=== PATIENT | male | born 1960 | race Caucasian/White ===

== ENCOUNTER → 2016-06-26 | Outpatient (CLI) | payer OTHER | LOC: BMCIMAGING 13:52 | PROVIDERS: ATTEND Nurse Practitioner Adult Health | DX: R05 Cough (principal) ==

== ENCOUNTER → 2016-08-30 | Outpatient (CLI) | payer OTHER | LOC: FIMAGING 15:44 | PROVIDERS: ATTEND Orthopaedic Surgery | DX: Z01.818 Encounter for other preprocedural examination (principal); M17.11 Unilateral primary osteoarthritis, right knee ==

== ENCOUNTER 2016-09-10 08:07 | Inpatient (IN) | payer OTHER ==
[2016-08-30 16:25] LABS: % IMMATURE GRANULYOCYTES 0.3 % (0.0-1.1); ABSOLUTE IMMATURE GRANULOCYTES 0.02 10^3/uL (0.00-0.10); ADD DIFF? NO; ADD MORPH? NO; ADD SCAN? NO; ATYPICAL LYMPHOCYTE FLAG 0 (0-99); FRAGMENT RBC FLAG 0 (0-99); HEMATOCRIT 40.5 % (40.0-51.0); HEMOGLOBIN 13.7 g/dL (13.7-17.5); LEFT SHIFT FLG 0 (0-99); LIPEMIA HEMOLYSIS FLAG 90 (0-99); MEAN CELL HEMOGLOBIN 32.4 pg (27.9-34.1); MEAN CELL HEMOGLOBIN CONCENTR. 33.8 g/dL (32.4-36.7); MEAN CELL VOLUME 95.7 fL (81.5-99.8); MEAN PLATELET VOLUME 10.6 fL (8.7-11.7); PLATELET CLUMPS FLAG 10 (0-99); PLATELET COUNT 201 10^3/uL (150-400); RED BLOOD CELL COUNT 4.23 10^6/uL (4.40-6.38); RED CELL DISTRIBUTION WIDTH 13.8 % (11.5-15.2)
[~2016-09-10 08:07] MED LIST: ACETAMINOPHEN 325 MG TAB PO ONE; CEFAZOLIN 2 GM/DEXTR 100 ML IV ONE; CHLORHEXIDINE GLUC HIBICLENS 118 ML BTL TP ONE; FAMOTIDINE 20 MG TAB PO ONE; ROPI/epiNEPH/KETOROLAC/morphINE JOINT COCKTAIL IU ONE; TRANEXAMIC ACID 900 MG in NS 100 ML IV ONE
[2016-09-10] MEDS ORDERED: CEFAZOLIN 2 GM/DEXTROSE/100 ML BAG IV ONE (09:51)
[2016-09-10] MEDS ORDERED: FAMOTIDINE 20 MG TAB ONE (09:51)
[2016-09-10] MEDS ORDERED: ACETAMINOPHEN 325 MG TAB ONE (09:51)
[2016-09-10] MEDS ORDERED: PROPOFOL/EMULSION 500 MG/50 ML BOTTLE IV ONE ×2 (10:14→13:02)
[2016-09-10] MEDS ORDERED: fentaNYL 100 MCG/2 ML INJ ONE ×2 (10:14→14:39)
[2016-09-10] MEDS ORDERED: LIDOCAINE 2% 5 ML SDV ONE ×3 (10:20→14:30)
[2016-09-10] MEDS ORDERED: MIDAZOLAM 2 MG/2 ML VIAL ONE (10:21)
[2016-09-10] MEDS ORDERED: CALCIUM CHLORIDE 1 GM/10 ML INJ ONE (10:23)
[2016-09-10] MEDS ORDERED: THROMBIN (BOVINE) 5,000 UNIT VIAL TP ONE (10:23)
[2016-09-10] MEDS ORDERED: ceFAZolin 1 GM/5 ML SYR ONE (10:25)
[2016-09-10] MEDS ORDERED: LR 1,000 ML IV ONE (11:08)
[2016-09-10] MEDS ORDERED: LIDOCAINE 1% 5 ML SDV ID PRN (11:08)
[2016-09-10] MEDS ORDERED: epHEDrine SULFATE 10 MG/ML SYR ONE (11:30)
[2016-09-10] MEDS ORDERED: ROCURONIUM 50 MG/5 ML VIAL ONE (11:50)
[2016-09-10] MEDS ORDERED: DEXAMETHASONE 4 MG/ML VIAL ONE (11:50)
[2016-09-10] MEDS ORDERED: ceFAZolin 1 GM VIAL ONE ×2 (12:27)
[2016-09-10] MEDS ORDERED: DIAZEPAM 5 MG TAB PO PRN (16:14)
[2016-09-10] MEDS ORDERED: ceFAZolin 2 GM/DEXTROSE 100 ML IV SCH (16:30)
[2016-09-10] MEDS ORDERED: D5W 1/2 NS W/ 20 KCl/L 1,000 ML IV SCH (16:30)
[2016-09-10 17:58] VITALS: RESP 16
[2016-09-10] MEDS: oxyCODONE IR 5 MG TAB PO PRN ×2 (18:26→22:20)
[2016-09-10] MEDS: ASPIRIN 325 MG TAB PO SCH (19:48)
[2016-09-10] MEDS: ceFAZolin 2 GM/DEXTROSE 100 ML IV SCH (19:48)
[2016-09-11] MEDS: ceFAZolin 2 GM/DEXTROSE 100 ML IV SCH (04:02)
[2016-09-11] MEDS: oxyCODONE IR 5 MG TAB PO PRN ×2 (04:02→08:51)
[2016-09-11 08:02] VITALS: BP 116/70; PULSE 70; TEMP 98; O2SAT 96
[2016-09-11] MEDS: ASPIRIN 325 MG TAB PO SCH (08:50)
[2016-09-11] MEDS ORDERED: MULTIVITAMINS 1 EACH TAB PO SCH (09:00)
[2016-09-11] MEDS ORDERED: GLUCOSAMINE SULF 500 MG CAP PO SCH (09:00)
--- NOTE | 2016-09-11 11:07 | GDS ---
[f rep st] DISCHARGE SUMMARY ADMISSION DIAGNOSIS: Right knee degenerative joint disease. DISCHARGE DIAGNOSIS: Right knee degenerative joint disease. PROCEDURE: Right total knee arthroplasty. HISTORY OF PRESENT ILLNESS: The patient is a 56-year-old gentleman with end-stage arthritis to his right knee. Clinical and radiographic features are consistent with this. He has failed all attempt s at conservative management, therefore, recommended total knee replacement. He understood the risk s, benefits, alternatives, and wished to proceed. Written consent was signed and placed in the twan ent's chart. HOSPITAL COURSE: The patient was admitted to the hospital floor after uncomplicated total knee arth roplasty, MAKOplasty. He tolerated the procedure well. Postoperative course was uneventful. At th e time of discharge, he is tolerating an oral diet. His pain is well controlled on oral medicines. He is voiding without difficulty. His incision is clean, dry, and intact. He has no calf swelling or tenderness. Intact ankle plantar flexion, dorsiflexion, EHL function with 5/5 strength. X-rays are stable with no fracture or lucency. DISCHARGE ACTIVITIES: Weightbearing as tolerated, range of motion as tolerated. DISCHARGE INSTRUCTIONS: Daily dressing changes. DEBRA ronquillo x2 weeks. DISCHARGE MEDICATIONS: Aspirin 325 mg p.o. daily, oxycodone 5 mg 1-2 every 4 hours p.r.n. pain. FOLLOWUP: 2 weeks. /[id number]/MODL
== END 2016-09-11 11:44 | disposition home or self-care (01) | DRG 470 ==
LOC: F3E 08:07 → F3N 16:04
PROVIDERS: ADMIT Orthopaedic Surgery; ATTEND Orthopaedic Surgery
PROC: 0SRC0JZ Replacement of Right Knee Joint with Synthetic Substitute, Open Approach (ICD-10-PCS; principal; 2016-09-10 10:00)
DX: M17.11 Unilateral primary osteoarthritis, right knee (principal); K21.9 Gastro-esophageal reflux disease without esophagitis
CPT/HCPCS: 97116-GP; 97161-GP; 97165-GO; C1713; J0171; J0690; J1100; J1885; J2250; J2704; J2795; J3010

== ENCOUNTER → 2016-10-22 | Outpatient (CLI) | payer OTHER | LOC: BMCIMAGING 10:48 | PROVIDERS: ATTEND Physician Assistant | DX: Z96.651 Presence of right artificial knee joint (principal); M25.461 Effusion, right knee ==

== ENCOUNTER → 2016-11-13 | Outpatient (CLI) | payer OTHER | LOC: FIMAGING 10:13 | PROVIDERS: ATTEND Orthopaedic Surgery | DX: Z01.818 Encounter for other preprocedural examination (principal); M17.12 Unilateral primary osteoarthritis, left knee; M25.462 Effusion, left knee ==

== ENCOUNTER 2016-12-03 10:38 | Inpatient (IN) | payer OTHER ==
--- NOTE | 2016-12-03 07:02 | PDHPUP ---
History & Physical Update H&P update statement: This history and physical update is based on an assessment of the patient which was completed after admission or registration (within 24 hours), but prior to the surgery/procedure.
--- NOTE | 2016-12-03 07:03 | PDIAF ---
- Diagnosis Diagnosis: left knee djd Code Status: Full Code - Medication Management Discharge Medications: Medications to Continue on Transfer Glucosamine Sulfate [Glucosamine Sulfate 500 MG (*)] 500 mg PO DAILY 08/20/16 [ Last Taken 09/05/16] Multivitamins [Multivitamin (*)] 1 each PO DAILY 08/20/16 [Last Taken 09/05/16] Naproxen Sodium [Aleve 220 MG (*)] 440 mg PO BID 11/01/16 [Last Taken Unknown] Discharge Medications: Refer to the Discharge Home Medication list for PRN reason. - Orders Services needed: Physical Therapy Activity/Weight Bearing Restrictions: wbat. rom as andria. daily dressing changes. may shower without bandage. no soaking or immersion. nabeel hose x 2 weeks. f/u at two weeks. seek attn for increasing redness, drainage or discharge. aspirin 325 mg po daily - Follow Up Care Current Providers and Referrals: Bandar Dickerson MD [Primary Care Provider] -
[~2016-12-03 10:38] MED LIST changes: -ACETAMINOPHEN 325 MG TAB PO ONE; -CEFAZOLIN 2 GM/DEXTR 100 ML IV ONE; -CHLORHEXIDINE GLUC HIBICLENS 118 ML BTL TP ONE; -FAMOTIDINE 20 MG TAB PO ONE; +NS IV ONE; -ROPI/epiNEPH/KETOROLAC/morphINE JOINT COCKTAIL IU ONE; +ROPIVACAINE 0.2% 80 MG, EPINEPHrine 0.2 MG, KETOROLAC TROMETHAMINE 30 MG, morphINE 10 M... IU ONE; -TRANEXAMIC ACID 900 MG in NS 100 ML IV ONE; +TRANEXAMIC ACID IV ONE
[2016-12-03] MEDS ORDERED: traMADol 50 MG TAB PO PRN (11:10)
[2016-12-03] MEDS ORDERED: MAGNESIUM HYDROXIDE 30 ML UDCUP PO PRN (11:10)
[2016-12-03] MEDS ORDERED: METOCLOPRAMIDE 10 MG/2 ML VIAL IVP PRN (11:10)
[2016-12-03] MEDS ORDERED: BISACODYL 10 MG SUPP PR PRN (11:10)
[2016-12-03] MEDS ORDERED: LACTULOSE 20 GM/30 ML UDCUP PO PRN (11:10)
[2016-12-03] MEDS ORDERED: TEMAZEPAM 15 MG CAP PO PRN (11:10)
[2016-12-03] MEDS ORDERED: ceFAZolin 2 GM/DEXTROSE 100 ML IV ONE (11:10)
[2016-12-03] MEDS ORDERED: DIPHENOXYLATE/ATROPINE LOMOTIL 1 TAB PO PRN (11:10)
[2016-12-03] MEDS ORDERED: ACETAMINOPHEN 325 MG TAB PO ONE (11:10)
[2016-12-03] MEDS ORDERED: diphenhydrAMINE 25 MG CAP PO PRN (11:10)
[2016-12-03] MEDS ORDERED: POLYETHYLENE GLYCOL 3350 17 GM PKT PO PRN (11:10)
[2016-12-03] MEDS ORDERED: PROMETHAZINE HCL 25 MG/ML INJ IVP PRN (11:10)
[2016-12-03] MEDS ORDERED: PROMETHAZINE HCL 25 MG SUPPR PR PRN (11:10)
[2016-12-03] MEDS ORDERED: DIAZEPAM 5 MG TAB PO PRN (11:10)
[2016-12-03] MEDS ORDERED: FAMOTIDINE 20 MG TAB PO ONE (11:10)
[2016-12-03] MEDS ORDERED: PHARMACY PAIN CONSULT 1 EA MISC PRN (11:10)
[2016-12-03] MEDS ORDERED: ONDANSETRON 4 MG/2 ML VIAL IVP PRN (11:10)
[2016-12-03] MEDS ORDERED: ONDANSETRON DISINTEGRATING 4 MG TAB PO PRN (11:10)
[2016-12-03] MEDS ORDERED: ceFAZolin 1 GM/5 ML SYR ONE (11:21)
[2016-12-03] MEDS ORDERED: NS IV ONE (11:45)
[2016-12-03] MEDS ORDERED: TRANEXAMIC ACID IV ONE (11:45)
[2016-12-03] MEDS: LR 1,000 ML IV SCH ×2 (11:50→21:06)
--- NOTE | 2016-12-03 12:37 | PDANEPAE ---
ANE History of Present Illness left knee OA for TKA today ANE Past Medical History - Cardiovascular History Hx Hypertension: No Hx Arrhythmias: No Hx Chest Pain: No Hx Coronary Artery / Peripheral Vascular Disease: No Hx CHF / Valvular Disease: No Hx Palpitations: No - Pulmonary History Hx COPD: No Hx Asthma/Reactive Airway Disease: No Hx Recent Upper Respiratory Infection: No Hx Oxygen in Use at Home: No Hx Sleep Apnea: No Sleep Apnea Screening Result - Last Documented: Negative Pulmonary History Comment: PRONE TO SINUS/BRONCHITIS - Neurologic History Hx Cerebrovascular Accident: No Hx Seizures: No Hx Dementia: No - Endocrine History Hx Diabetes: No - Renal History Hx Renal Disorders: No - Liver History Hx Hepatic Disorders: No - Neurological & Psychiatric Hx Hx Neurological and Psychiatric Disorders: No - Cancer History Hx Cancer: No - Congenital Disorder History Hx Congenital Disorders: No - GI History Hx Gastrointestinal Disorders: Yes Gastrointestinal History Comment: REFLUX OCCAS - Other Health History Other Health History: tooth implant upper right canine - Chronic Pain History Chronic Pain: Yes (left knee) - Surgical History Prior Surgeries: bilateral knee scopes, 2x on left, 1x on right. right knee replacement september 2016. right acl 1991. tooth implant. pilonidal cyst ANE Review of Systems - Exercise capacity METS (RN): 4 METS ANE Patient History - Allergies Allergies/Adverse Reactions: No Known Allergies Allergy (Unverified 08/20/16 11:13) - Home Medications Home medications: home medication list seen and reviewed Home Medications: Glucosamine Sulfate [Glucosamine Sulfate 500 MG (*)] 500 mg PO DAILY 08/20/16 [ Last Taken 11/26/16] Multivitamins [Multivitamin (*)] 1 each PO DAILY 08/20/16 [Last Taken 11/26/16] Naproxen Sodium [Aleve 220 MG (*)] 440 mg PO BID 11/01/16 [Last Taken 11/26/16] - NPO status NPO Since - Liquids (Date): 12/02/16 NPO Since - Liquids (Time): 21:00 NPO Since - Solids (Date): 12/01/16 NPO Since - Solids (Time): 18:00 - Anes Hx Anes Hx: no prior problems - Smoking Hx Smoking Status: Never smoked - Family Anes Hx Family Hx Anesthesia Complications: NEG ANE Labs/Vital Signs - Vital Signs Blood Pressure: 116/78 Heart Rate: 78 Respiratory Rate: 16 O2 Sat (%): 94 Height: 182.88 cm Weight: 87.543 kg ANE Physical Exam - Airway Neck exam: FROM Mallampati Score: Class 2 Mouth exam: normal dental/mouth exam - Pulmonary Pulmonary: no respiratory distress - Cardiovascular Cardiovascular: regular rate and rhythym - ASA Status ASA Status: II ANE Anesthesia Plan Anesthesia Plan: spinal Regional Anesthesia: single shot NB, adductor canal FNB
[2016-12-03] MEDS ORDERED: MIDAZOLAM 2 MG/2 ML VIAL IVP ONE (12:39)
[2016-12-03] MEDS ORDERED: PROPOFOL/EMULSION 500 MG/50 ML BOTTLE IV ONE (12:44)
[2016-12-03] MEDS ORDERED: MIDAZOLAM 2 MG/2 ML VIAL ONE (12:53)
[2016-12-03] MEDS ORDERED: THROMBIN (BOVINE) 5,000 UNIT VIAL TP ONE (13:49)
[2016-12-03] MEDS ORDERED: CALCIUM CHLORIDE 1 GM/10 ML INJ ONE (13:49)
[2016-12-03] MEDS ORDERED: PROPOFOL 200 MG/20 ML VIAL ONE ×3 (14:56→15:49)
[2016-12-03] MEDS ORDERED: fentaNYL 100 MCG/2 ML INJ ONE ×2 (15:33→17:22)
[2016-12-03] MEDS: ROPIVACAINE 0.2% 80 MG, EPINEPHrine 0.2 MG, KETOROLAC TROMETHAMINE 30 MG, morphINE 10 M... IU ONE ×2 (15:55→18:03)
[2016-12-03] MEDS: TRANEXAMIC ACID IV ONE ×2 (16:00→18:04)
[2016-12-03] MEDS: NS IV ONE ×2 (16:00→18:04)
[2016-12-03] MEDS ORDERED: NALOXONE HCL 0.4 MG/ML INJ IVP PRN (16:43)
[2016-12-03] MEDS ORDERED: fentaNYL 100 MCG/2 ML INJ IVP PRN (16:43)
[2016-12-03] MEDS ORDERED: HYDROmorphONE/DILAUDID 1 MG/ML SYR IVP PRN (16:43)
[2016-12-03] MEDS ORDERED: OXYCODONE/APAP 5/325 TAB PO PRN (16:43)
--- NOTE | 2016-12-03 16:43 | POSTANESTH ---
Post Anesthetic Evaluation Cardiovascular Status: Normal, Stable Respiratory Status: Normal, Stable Level of Consciousness/Mental Status: Can Participate in Eval Pain Control: Adequate, Prn Tx Ordered Nausea/Vomiting Control: Adequate, Prn Tx Ordered Complications Possibly Related to Anesthesia: None Noted
[2016-12-03] MEDS: ACETAMINOPHEN 325 MG TAB PO SCH ×2 (18:02→18:23)
[2016-12-03] MEDS: MULTIVITAMINS 1 EACH TAB PO SCH (18:03)
[2016-12-03] MEDS: SENNOSIDES/DOCUSATE SODIUM TAB PO SCH ×2 (18:03→21:07)
[2016-12-03] MEDS: GLUCOSAMINE SULF 500 MG CAP PO SCH (18:44)
[2016-12-03] MEDS: oxyCODONE IR 5 MG TAB PO PRN (19:45)
[2016-12-03] MEDS: ASPIRIN 325 MG TAB PO SCH (21:06)
[2016-12-03] MEDS: ceFAZolin 2 GM/DEXTROSE 100 ML IV SCH (21:06)
[2016-12-03] MEDS: FAMOTIDINE 20 MG TAB PO SCH (21:06)
[2016-12-04] MEDS: ACETAMINOPHEN 325 MG TAB PO SCH ×2 (00:02→05:00)
[2016-12-04 05:00] LABS: HEMATOCRIT 36.2 % (40.0-51.0); HEMOGLOBIN 12.1 g/dL (13.7-17.5)
[2016-12-04] MEDS: ceFAZolin 2 GM/DEXTROSE 100 ML IV SCH (05:00)
[2016-12-04] MEDS: ASPIRIN 325 MG TAB PO SCH (08:29)
[2016-12-04] MEDS: GLUCOSAMINE SULF 500 MG CAP PO SCH (08:30)
[2016-12-04] MEDS: MULTIVITAMINS 1 EACH TAB PO SCH (08:30)
[2016-12-04] MEDS: FAMOTIDINE 20 MG TAB PO SCH (08:30)
[2016-12-04] MEDS: SENNOSIDES/DOCUSATE SODIUM TAB PO SCH (08:31)
--- NOTE | 2016-12-04 08:31 | GDS ---
[f rep st] DISCHARGE SUMMARY ADMIT DIAGNOSIS: Left knee degenerative joint disease. DISCHARGE DIAGNOSIS: Left knee degenerative joint disease. PROCEDURE: Left total knee arthroplasty, MAKOplasty. HISTORY OF PRESENT ILLNESS: The patient is a 56-year-old gentleman, well known to me for previous r ight knee replacement. He returns for elective left total knee replacement. He has end-stage arthr itis. He has failed all attempts at conservative management. HOSPITAL COURSE: The patient was admitted to the hospital floor after uncomplicated total knee arth roplasty. He tolerated the procedure well. Postoperatively, he had no complications. At the time of discharge, he is tolerating an oral diet. His pain is well controlled on oral medicines. He is voiding without difficulty. His dressing is clean, dry, and intact. He has no calf swelling or ten derness to bilateral lower extremities. Negative Homans. The bilateral lower extremity x-rays are stable and anatomic. DISCHARGE ACTIVITIES: Weightbearing as tolerated. Range of motion as tolerated. Daily dressing ch anges. No soaking or immersion. May shower without the bandage. Follow up in 2 weeks. Seek atten tion for increasing redness, swelling, drainage, discharge, or other focal complaints. DISCHARGE MEDICATIONS: Oxycodone 5 mg 1-2 every 4 hours p.r.n. pain, aspirin 325 mg p.o. daily and Valium 5 mg, 1 p.o. q.8 hours p.r.n. spasm. FOLLOW UP: He will follow up at 2 weeks. /[id number]/MODL
[2016-12-04] MEDS: oxyCODONE IR 5 MG TAB PO PRN (08:39)
[2016-12-04 09:05] VITALS: BP 116/75; PULSE 81; RESP 16; TEMP 98.4; O2SAT 95
--- NOTE | 2016-12-04 14:23 | ASMTCMCOM ---
CM Note CM Note Notes: Reviewed chart; spoke w/ RAJI Reed. Per notes, pt to discharge home today, independently w/ famil y support and no identified needs. CM avail for any further issues or concerns. Date Signed: 12/04/2016 12:02 PM Electronically Signed By:Michela Marie
--- NOTE | 2016-12-04 14:23 | ASDISCHSUM ---
Discharge Information Plan Status:Home with No Needs Medically Cleared to Leave:12/04/2016 Discharge Date:12/04/2016 11:18 AM CM D/C Disposition:Home, Routine, Self-Care ADT D/C Disposition:Home, Routine, Self-Care Projected Discharge Date:12/04/2016 11:18 AM Transportation at D/C:Family Discharge Delay Reason: Follow-Up Date:12/18/2016 Discharge Slot: Final Diagnosis:Left knee degenerative joint disease Placement Information Patient Contact Information Contact Name:GRACIE Relationship: Address:[address] City:[place] Alternate Phone: State/Zip Code:[place] [address] Email: Financial Information Financial Class:HMO and PPO Plans Primary Plan Desc:[facility] Primary Plan Number:[id number] Secondary Plan Desc: Secondary Plan Number: Assessment Information [facility] Initial CM Assessment Living Arrangements What is your living Answers: With Spouse arrangement? Who do you live with? Type Of Residence What kind of residence do Answers: House you live in? Stairs in Home Answers: Yes Environment Case Management Evaluation Functional: Able to Answers: Yes return Home with Prior Level of Function/Care Discharge Plan Comments Coordination Status Comments Notes: Per notes, pt to discharge independently w/ family support and no identified needs. Date Signed: 12/04/2016 12:00 PM Electronically Signed By:Michela Marie [facility] CM Progress Note CM Note CM Note Notes: Reviewed chart; spoke w/ RAJI Reed. Per notes, pt to discharge home today, independently w/ family support and no identified needs. CM avail for any further issues or concerns. Date Signed: 12/04/2016 12:02 PM Electronically Signed By:Michela Marie Intervention Information
--- NOTE | 2016-12-04 14:23 | ASMTCASEMG ---
Living Arrangements What is your living arrangement? Who do you live Answers: With Spouse with? Type Of Residence What kind of residence do you live in? Answers: House Stairs in Home Environment Answers: Yes Case Management Evaluation Functional: Able to return Home with Prior Level Answers: Yes of Function/Care Discharge Plan Comments Coordination Status Comments Notes: Per notes, pt to discharge independently w/ family support and no identified needs. Date Signed: 12/04/2016 12:00 PM Electronically Signed By:Michela Marie
--- NOTE | 2016-12-07 07:53 | GOP ---
[f rep st] OPERATIVE REPORT DATE OF OPERATION: 12/03/2016 SURGEON: Anson Carney MD DRUG PURCHASER: Chago Montano, ANTISQUEAK APPLIER, ATTORNEY RECRUITER, surgical manager, who was medical necessity for the entiret y of the case. PREOPERATIVE DIAGNOSIS: Left knee degenerative joint disease. POSTOPERATIVE DIAGNOSIS: Left knee degenerative joint disease. PROCEDURE PERFORMED: Left total knee arthroplasty, MAKOplasty. FINDINGS: SPECIMENS: To Pathology, the bony cuts. ESTIMATED BLOOD LOSS: 200 cc. INDICATIONS: The patient is a 56-year-old gentleman who has end-stage arthritis to his left knee. Clinical and radiographic features are consistent with this. He has failed all attempts at conserva tive management. I have, therefore, recommended operative intervention of outlined surgical procedu re, risks, benefits, and alternatives. He wished to proceed. Written consent was signed and placed in patient's chart. DESCRIPTION OF PROCEDURE: The patient was identified in the preanesthesia area. The left knee mani rly demarcated the operative site with indelible marker. He was given 2 g of Ancef intravenously en route to the operative suite. In the OR, general endotracheal anesthesia was administered. Attent ion was turned to the left lower extremity, which was sterilely prepped and draped in the usual [facility] ion. A tourniquet was applied on the upper thigh. Appropriate time-out procedure was carried out. The limb was exsanguinated with Esmarch bandage and tourniquet inflated to 275 mmHg. A standard an terior midline incision was made. Thick subcutaneous flaps were elevated, followed by medial parapa tellar arthrotomy. There was gross bony changes consistent with tricompartmental arthritis. Decisi on was made to proceed with total knee replacement. A separate percutaneous incision was made in th e mid thigh and mid cardenas for the MAKOplasty reference arrays, both of these were fixed over pins in standard fashion. A femoral check point and tibial checkpoints were placed. Bony data was then ent ered into the computer in standard fashion. The MAKOplasty robot was brought in. Soft tissue retra ctors were placed. The patella was cut in a freehand cutting technique and drill holes were made fo r the size 38 mm asymmetric patella. Using the MAKOplasty robot, the bony cuts were initially made for a size 6 femoral and tibial components. After trial sizing, additional cuts were made for size 5 femoral and 5 tibial components. The femur was then finished with a trochlear cut. Trial reducti on revealed anatomic positioning and alignment of the femur. The tibia baseplate was then affixed, the correct orientation was secured and the central punch placed. Trial reduction over a 9 and then 11 mm polyethylene spacer revealed full extension, flexion to 130 degrees without instability throu ghout the flexion-extension arc. The varus and valgus stability were balanced through the flexion-e xtension arc. The patella trial component was placed. The knee was taken through flexion, extensio n and the patella tracked centrally. All trial components were withdrawn. All bony surfaces were t horoughly cleansed and dried. In sequential fashion, the tibial, femoral and patellar components we re then cemented over a 9 mm polyethylene spacer. All marginal cement had been withdrawn. The tiss ue was then injected with a joint cocktail of ropivacaine, morphine, Toradol, and epinephrine. Ulti mately, an 11 mm final polyethylene spacer was then placed and secured. This was confirmed to be fu lly seated. The wound was copiously irrigated with pulsatile lavage solution. The medial parapatel lar arthrotomy closed using #1 Ethibond, subcutaneous tissue closed using 2-0 Monocryl and the skin stapled. The pin sites in the mid femur, and mid cardenas were likewise closed with 2-[address] apled. Sterile dressing was applied. The patient was awakened, extubated, taken to recovery room i n good and stable condition. TOTAL TOURNIQUET TIME: Was 90 minutes. COMPLICATIONS: None. IMPLANTS: The Hawkins Triathlon PS femoral component size 5, Triathlon X3 asymmetric patella, a 38 and 11 mm thickness, the X3 tibial bearing insert size 5, 11 mm thickness, and a tibial baseplate si ze 5. DISPOSITION: To recovery room and then the floor. He is weightbearing range of motion as tolerated . He will follow standard total knee recovery. /[id number]/MODL
== END 2016-12-04 11:18 | disposition home or self-care (01) | DRG 470 ==
LOC: F3E 10:38 → F3N 18:17
PROVIDERS: ADMIT Orthopaedic Surgery; ATTEND Orthopaedic Surgery
PROC: 0SRD0J9 Replacement of Left Knee Joint with Synthetic Substitute, Cemented, Open Approach (ICD-10-PCS; principal; 2016-12-03 12:30)
CPT/HCPCS: 97161-GP; 97165-GO; C1713; J0171; J0690; J1885; J2250; J2405; J2704; J2795; J3010

== ENCOUNTER → 2017-01-21 | Outpatient (CLI) | payer OTHER | LOC: BMCIMAGING 08:04 | PROVIDERS: ATTEND Orthopaedic Surgery | DX: Z47.1 Aftercare following joint replacement surgery (principal); Z96.651 Presence of right artificial knee joint; Z96.652 Presence of left artificial knee joint; M25.461 Effusion, right knee; M25.462 Effusion, left knee ==

== ENCOUNTER → 2017-04-24 | Outpatient (CLI) | payer OTHER | LOC: BMCIMAGING 08:28 | PROVIDERS: ATTEND Orthopaedic Surgery | DX: Z96.652 Presence of left artificial knee joint (principal) ==

== ENCOUNTER → 2017-05-30 | Outpatient (CLI) | payer OTHER | LOC: BMCIMAGING 08:36 → EDSTATUS 08:37 | PROVIDERS: ATTEND Orthopaedic Surgery Hand Surgery | DX: M19.011 Primary osteoarthritis, right shoulder (principal); M19.012 Primary osteoarthritis, left shoulder; M25.831 Other specified joint disorders, right wrist; M25.832 Other specified joint disorders, left wrist ==